=== PATIENT | female | born 1965 | race Caucasian/White ===

== ENCOUNTER 2018-01-14 14:50 | Outpatient (CLI) | payer BC ==
--- NOTE | 2018-01-14 15:38 | RAD ---
CERVICAL SPINE MULTIPLE VIEWS: HISTORY: Neck and left shoulder pain. FINDINGS: There are degenerative changes in the cervical spine without evidence of fracture, subluxation, or prachi ny destruction. If there is concern for myelopathy or radiculopathy, further evaluation with MRI should be performed. POS: [facility]
== END 2018-01-14 14:51 | disposition home or self-care (01) ==
LOC: RAD 14:50
PROVIDERS: ATTEND Chiropractor
DX: M25.512 Pain in left shoulder (principal); M54.2 Cervicalgia
CPT/HCPCS: 72050

== ENCOUNTER 2018-11-13 05:19 | Emergency (ER) | payer BC ==
[2018-11-13] MEDS ORDERED: Cyclobenzaprine 10 MG TAB ONE (05:48)
[2018-11-13] MEDS ORDERED: Ketorolac Tromethamine 30 MG/ML VIAL ONE (05:48)
[2018-11-13] MEDS ORDERED: Diazepam 5 MG TAB ONE (06:24)
== END 2018-11-13 06:55 | disposition home or self-care (01) ==
LOC: SCSER 05:19
DX: M54.2 Cervicalgia (principal); I10 Essential (primary) hypertension; E03.9 Hypothyroidism, unspecified
CPT/HCPCS: 96372; J1885

== ENCOUNTER 2020-04-20 12:56 | Outpatient (CLI) | payer BC ==
--- NOTE | 2020-04-20 15:49 | MRI ---
MRI Cervical spine without contrast: HISTORY: Cervical radiculopathy. Patient reports neck and bilateral shoulder pain with numbness and tingling i n each arm. COMPARISON: None FINDINGS: The craniocervical junction is unremarkable. No significant cord signal abnormality. Paravertebral soft tissues have a normal appearance and normal signal intensity. There is straightening of the upper cervical spinal cord. An increased T1 and T2-weighted signal inte nsity lesion is seen in the C6 vertebral body most compatible with a hemangioma measuring 12 mm. C1-2:No significant stenosis. C2-3: There is no disc bulge or disc herniation. The central spinal canal and neural foramina are pat ent. C3-4: Mild disc osteophyte complex with right-sided uncinate process hypertrophy. Findings result in mild effacement of ventral subarachnoid space. No significant neural foraminal narrowing is present. C4-5: Broad-based disc osteophyte complex is present. This narrows the ventral subarachnoid space wit h slight flattening of the anterior aspect of the spinal cord. Mild right and mild/moderate left-sided neural foraminal narrowing is present. Mild facet degenerative changes are seen. C5-6: Mild loss of intervertebral disc height. Broad-based disc osteophyte complex is present which n arrows ventral subarachnoid space but does not appear to result in mass effect on the spinal cord. Moderate bilateral neural foraminal narrowing is present. C6-7: Mild disc osteophyte complex greater on the right. No significant central canal narrowing is pr esent; although, there is slight effacement of the right anterolateral aspect of the subarachnoid space. Moderate left and severe right sided neural foraminal narrowing are present. C7-T1: There is no disc bulge or disc herniation. The central spinal canal and neural foramina are pa tent. IMPRESSION: Multilevel disc degenerative changes with varying degrees of neural foraminal narrowing
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
== END 2020-04-20 12:57 | disposition home or self-care (01) ==
LOC: SCSMRI 12:56
PROVIDERS: ATTEND Family Medicine
DX: M47.22 Other spondylosis with radiculopathy, cervical region (principal); M50.10 Cervical disc disorder with radiculopathy, unspecified cervical region; M75.41 Impingement syndrome of right shoulder; M75.21 Bicipital tendinitis, right shoulder; M25.811 Other specified joint disorders, right shoulder; M19.011 Primary osteoarthritis, right shoulder; M48.02 Spinal stenosis, cervical region
CPT/HCPCS: 72141

== ENCOUNTER 2020-08-17 05:48 | Outpatient (CLI) | payer BC, OTHER ==
[2020-08-17 10:38] LABS: #Basophils 0.1 thou/uL (0.0-0.2); #Eosinphils 0.2 thou/uL (0.0-0.7); #Monocytes 0.6 thou/uL (0.11-0.59); %Basophils 0.8 % (0.0-1.0); %Eosinophils 2.6 % (0.0-10.0); %Lymphocytes 25.4 % (21.0-51.0); %Monocytes 7.3 % (0.0-10.0); %Neutrophils 63.9 % (42.0-75.0); Hemoglobin 14.2 g/dL (12.0-16.0); Mean Corpuscular HGB CONC 33.3 g/dL (32.0-36.0); Mean Corpuscular Hemoglobin 30.9 pg (27.0-31.0); Mean Corpuscular Volume 92.7 fL (78.0-98.0); Mean Platelet Volume 7.3 fL (7.4-10.4); Platelet Count 329 thou/uL (130-400); RBC Distribution Width 11.4 % (11.5-14.5); White Blood Cell (WBC) Count 7.9 thou/uL (4.8-10.8)
[2020-08-17 17:17] LABS: SARS-CoV-2 MS2 Positive; SARS-CoV-2 N Gene Negative; SARS-CoV-2 S Gene Negative; SARS-CoV-2 by NAA Not Detected (NotDetected); SARS-CoV-2 orf1ab Negative
--- NOTE | 2020-08-20 15:36 | EKG ---
Test Reason : Blood Pressure : / mmHG Vent. Rate : 061 BPM Atrial Rate : 061 BPM P-R Int : 166 ms QRS Dur : 088 ms QT Int : 428 ms P-R-T Axes : 037 -14 019 degrees QTc Int : 430 ms Normal sinus rhythm Normal ECG No previous ECGs available Confirmed by PANCHO AGOSTO M.D. ([id number]) on 08/20/2020 3:36:21 PM Referred By: RUBA Confirmed By:PANCHO AGOSTO M.D.
== END 2020-08-17 05:49 | disposition home or self-care (01) ==
LOC: LABBT 05:48
PROVIDERS: ATTEND Orthopaedic Surgery
DX: Z01.818 Encounter for other preprocedural examination (principal); Z20.828 Contact with and (suspected) exposure to other viral communicable diseases; G56.03 Carpal tunnel syndrome, bilateral upper limbs
CPT/HCPCS: 85025; 87635; 93005; 93010; U0003

== ENCOUNTER 2020-08-21 05:48 | Day surgery (SDC) | payer BC ==
[2020-08-16 13:55] VITALS: BMI 29.2
[2020-08-21] MEDS ORDERED: Clindamycin/D5W 600 mg/50 ml Premix Bag ONE (06:06)
[2020-08-21] MEDS ORDERED: Lidocaine 1% w/Epinephrine 1:100K 20 ML VIAL ONE (06:14)
[2020-08-21] MEDS ORDERED: Fentanyl 100 MCG/2 ML VIAL ONE (06:58)
[2020-08-21] MEDS ORDERED: PROPOFOL 40 ML ONE (06:58)
--- NOTE | 2020-08-21 13:32 | OP ---
DATE OF PROCEDURE: 08/21/2020 PREOPERATIVE DIAGNOSIS: Right carpal tunnel syndrome. POSTOPERATIVE DIAGNOSIS: Right carpal tunnel syndrome. PROCEDURE PERFORMED: Right open carpal tunnel release. [employer] TECHNICIAN: None. ANESTHESIOLOGIST: Fatemeh Blackwell MD ANESTHESIA: The patient received a TIVA with 10 mL of 1% lidocaine with epinephrine. ESTIMATED BLOOD LOSS: Less than 10 mL. TOURNIQUET TIME: 7 minutes at 250 mmHg. ANTIBIOTICS: Ancef 2 g. COMPLICATIONS: None. HISTORY OF PRESENT ILLNESS: Ms. Carpenter is a 55-year-old female, who presents with right carpal tunnel symptoms and history of cervical stenosis. I discussed with her the risks and benefits of right carpal tunnel release to include, pain, scar, bleeding, infection, damage to vital structures, decreased range of motion, continued pain despite surgical intervention, loss of life or limb. The patient understood the risks and benefits of the procedure and elected to proceed. DESCRIPTION OF PROCEDURE: Time-out was performed designating the patient's right upper extremity as the operative site based on site, consent, and markings. After time-out, the patient's right upper extremity prepped and draped in sterile fashion. 3 mL of 1% lidocaine with epi was then injected in line with the incision in a wheal in the wrist. I took the tourniquet up for a total of 7 minutes and dissected down through the proximal Suarez's cardinal line, distal to the flexor crease down through skin, bluntly dissected down the palmar fascia, which I incised in line with the patient's palmaris brevis. I placed a hemostat on the transverse carpal ligament protecting the nerve post dorsally. I used a knife to come through the patient's transverse carpal ligament proximally to distally. I washed, let the tourniquet down after 7 minutes to control bleeding, closed with 3-0 nylon. The patient was placed in a soft tissue dressing. She will follow up with me in 10 to 12 days. She is sent home with p.o. pain medications. Job ID: [id number] [id number]
[2020-08-21] MEDS ORDERED: Ondansetron PF 4 MG/2 ML Vial ONE (13:58)
== END 2020-08-21 08:35 | disposition home or self-care (01) ==
LOC: SDC 05:48
PROVIDERS: ATTEND Orthopaedic Surgery
PROC: 01N50ZZ Release Median Nerve, Open Approach (ICD-10-PCS; principal; 2020-08-21)
DX: G56.03 Carpal tunnel syndrome, bilateral upper limbs (principal); M48.02 Spinal stenosis, cervical region; E03.9 Hypothyroidism, unspecified; Z79.899 Other long term (current) drug therapy; Z88.0 Allergy status to penicillin; Z91.018 Allergy to other foods
CPT/HCPCS: J2405; J2704; J3010; J3490

== ENCOUNTER 2023-01-22 09:43 | Outpatient (CLI) | payer BC | END 2023-01-22 09:44 | disposition home or self-care (01) | LOC: BICRAD 09:43 | PROVIDERS: ATTEND Nurse Practitioner Family | DX: M79.601 Pain in right arm (principal); S52.131D Displaced fracture of neck of right radius, subsequent encounter for closed fracture with routine healing ==